=== PATIENT | male | born 1975 | race Caucasian/White ===

== ENCOUNTER 2020-01-24 11:16 | Emergency (ER) | payer OTHER, SELFPAY ==
--- NOTE | ~2020-01-24 | XR_ITS ---
XR chest 2V DATE: 01/24/2020 11:50 INDICATION: Cough TECHNIQUE: 2 views COMPARISON: None FINDINGS: Normal heart size. No hilar or mediastinal enlargement. No pulmonary infiltrate or consolidation, pleural effusion or pulmonary vascular congestion or pneumo thorax is detected. IMPRESSION: No active cardiopulmonary disease Reviewed, dictated and finalized at location B.
[2020-01-24 11:35] VITALS: BP 141/85; PULSE 91; RESP 20; TEMP 37.4; O2SAT 95
--- NOTE | 2020-01-24 11:53 | ED.GENADULT ---
HPI - General Adult General Chief complaint: Upper Respiratory Infection Stated complaint: cough Time Seen by Provider: 01/24/20 11:53 Source: patient and RN notes reviewed Mode of arrival: ambulatory Limitations: no limitations History of Present Illness HPI narrative: 45-year-old male presents with complains of exposure to COVID-19 (positive 10-year-old family member), dry cough, fever, fatigue, and body aches for the past 5-6 days. Symptoms has increased over the last 24 hours with cough, worse at night. Albuerol Inhaler, DayQuil, and NyQuil without relief. Constant dry cough. No rhinorrhea. Nasal congestion. Denies sore throat. No high fevers, drooling, neck or throat swelling. No chest pain, wheezing, or shortness of breath. No exacerbation factors. Denies nausea, vomiting, and abdominal pain. Tolerating liquids well. The patient reports he have not been diagnosed with COVID-19. The patient reports he is waiting for the results of a COVID-19 lab test. Tested on 01/22/20 in [facility] testing site, name unknown per patient. The patient reports he do not have chills or weakness. The patient reports he do not have shortness of breath. Denies chest pain. The patient reports he do not have any rhinorrhea, loss of taste, sore throat, and diarrhea. Denies recent traveling. Denies concerns for COVID-19 or exposures been home with limited outdoor exposure except for essential household needs, work, and return home. At this time, patient is not suspected of having COVID-19. Some parts of this dictation were generated by voice recognition software and may contain typographical and/or grammatical inaccuracies. Related Data Home Medications Medication Instructions Recorded Confirmed abiraterone 1,000 mg PO DAILY 01/24/20 01/24/20 albuterol sulfate 1 inh INHALATION QID PRN 01/24/20 01/24/20 metformin 500 mg PO BID 01/24/20 01/24/20 prednisone 5 mg PO BID 01/24/20 01/24/20 tamsulosin 0.4 mg PO DAILY 01/24/20 01/24/20 Allergies Allergy/AdvReac Type Severity Reaction Status Date / Time No Known Allergies Allergy Verified 01/24/20 11:35 Review of Systems Review of Systems: Narrative: CONSTITUTIONAL: Complains of intermittent fever, fatigue. Denies chills, sweats. EYES: Denies visual changes, redness, discharge. ENT: Denies rhinorrhea, sore throat, otalgia. Complains of congestion. CARDIOVASCULAR: Denies chest pain, palpitations, edema. RESPIRATORY: Denies dyspnea, wheezing. Complains of dry cough. GASTROINTESTINAL: Denies abdominal pain, nausea, vomiting, diarrhea. GENITOURINARY: Denies dysuria, hematuria, abnormal discharge. SKIN: Denies rash or itching. MUSCULOSKELETAL: Denies acute back pain, joint pain, or myalgia. NEUROLOGIC: Denies numbness or focal weakness. PSYCHIATRIC: Denies anxiety or depression. All systems reviewed & are unremarkable except as noted in HPI and below PMFSH Past Medical History Medical History (Updated 01/24/20 @ 15:58 by JESICA Landrum) Diabetes Hypercholesteremia Hypertension Morbid obesity Prostate cancer Patient says he has stage IV and is receiving hormone therapy Umbilical hernia Surgical History Surgical History (Updated 01/24/20 @ 12:20 by JESICA Landrum) History of ankle surgery Related to staph infection History of tonsillectomy Family History Family History (Updated 01/24/20 @ 12:21 by JESICA Landrum) Father Cancer Mother Heart disease Social History Social History (Updated 01/24/20 @ 12:22 by JESICA Landrum) Smoking status: Never smoker Tobacco type: cigarettes Second hand tobacco smoke exposure: No Alcohol intake: current Substance use: never Living arrangements: with family Occupation/Education: occupation Gender identity (if verbalized by the patient): Male Comments At time of signature, agree with nurse past medical, surgical, social, and family history. There is
== END 2020-01-24 12:23 | disposition home or self-care (01) ==
PROVIDERS: Emergency Provider Nurse Practitioner Family; PCP Internal Medicine
DX: B34.9 Viral infection, unspecified (principal); Z20.828 Contact with and (suspected) exposure to other viral communicable diseases; E11.9 Type 2 diabetes mellitus without complications; E78.00 Pure hypercholesterolemia, unspecified; I10 Essential (primary) hypertension; E66.01 Morbid (severe) obesity due to excess calories; Z68.42 Body mass index [BMI] 45.0-49.9, adult; C61 Malignant neoplasm of prostate
CPT/HCPCS: 71046; 99213; G0463

== ENCOUNTER 2020-01-27 05:54 | Inpatient (IN) | payer OTHER, SELFPAY ==
[2020-01-27] VITALS (17 sets, daily range): BP systolic 124–143; BP diastolic 70–88; PULSE 82–107; RESP 12–28; TEMP 36.3–39; O2SAT 93–97; BMI 51.2
--- NOTE | ~2020-01-27 | XR_ITS ---
EXAMINATION: XR chest 1V portable EXAM DATE: 01/27/2020 07:00 INDICATION: COVID 19 positive. Cough. TECHNIQUE: Portable AP frontal chest x-ray was obtained. Comparison is made to prior examination from 01/24/2020. FINDINGS: Interval development of moderate amount of bilateral mid and lower lung zone airspace disea se, most likely acute lung injury from SARS-CoV-2 given the history provided. No pneumothorax or pleural effusion. Cardiomediastinal silhouette is normal. There are no osseous abn ormalities identified. IMPRESSION: Development of moderate amount of acute airspace disease. Reviewed, dictated and finalized at location B.
--- NOTE | 2020-01-27 06:15 | ECG_ITS ---
Measurements Intervals [place] Rate: 93 P: 1 WI: 148 QRS: 32 QRSD: 86 T: 26 QT: 336 QTc: 419 Interpretive Statements SINUS RHYTHM NORMAL ECG Electronically Signed On 01-27-2020 6:58:29 CDT by Anderson Truong D.O.
--- NOTE | 2020-01-27 06:17 | ED.SOB ---
HPI - SOB/Dyspnea General Chief Complaint: Shortness of Breath/Dyspnea Stated Complaint: sob Time Seen by Provider: 01/27/20 05:58 Source: patient Mode of arrival: EMS Limitations: no limitations History of Present Illness HPI Narrative: This patient is a 45 year old male with history of DM and prostate CA who presents for evaluation of shortness of breath and COVID +. He developed symptoms of COVID 10 days ago. He tested positive on Monday. He reports he has been having cough, intermittent sore throat, fever and chills. He was evaluated at Urgent care for worsening cough . He was started on tessalon perles , prednisone 60 mg and an albuterol inhaler. He states last night his cough and sob have worsened. He also reports having a fever of 104 F at home. MD elicited complaint: shortness of breath Related Data Home Medications Medication Instructions Recorded Confirmed abiraterone 1,000 mg PO DAILY 01/24/20 01/24/20 albuterol sulfate 1 inh INHALATION QID PRN 01/24/20 01/24/20 metformin 500 mg PO BID 01/24/20 01/24/20 prednisone 5 mg PO BID 01/24/20 01/24/20 tamsulosin 0.4 mg PO DAILY 01/24/20 01/24/20 atorvastatin 01/27/20 Allergies Allergy/AdvReac Type Severity Reaction Status Date / Time No Known Allergies Allergy Verified 01/27/20 06:01 Review of Systems Review of Systems: All systems reviewed & are unremarkable except as noted in HPI and below Constitutional: Constitutional: Reports chills, Reports fatigue and Reports fever(s) ENT: Reports sore throat Respiratory: Respiratory: Reports cough, Reports dyspnea and Reports wheezing Gastrointestinal: Gastrointestinal: Reports diarrhea and Reports vomiting PMF Past Medical History Medical History (Updated 01/27/20 @ 07:28 by Liliane Allison MD) Diabetes Hypercholesteremia Hypertension Morbid obesity Prostate cancer Patient says he has stage IV and is receiving hormone therapy Umbilical hernia Surgical History Surgical History (Updated 01/24/20 @ 12:20 by JESICA Landrum) History of ankle surgery Related to staph infection History of tonsillectomy Family History Family History (Updated 01/24/20 @ 12:21 by JESICA Landrum) Father Cancer Mother Heart disease Social History Social History (Updated 01/24/20 @ 12:22 by JESICA Landrum) Smoking status: Never smoker Tobacco type: cigarettes Second hand tobacco smoke exposure: No Alcohol intake: current Substance use: never Gender identity (if verbalized by the patient): Male Exam Const: General: no acute distress and alert Orientation/consciousness: patient oriented x3 HENMT: Head: atraumatic Eyes: EOM: EOMs intact bilaterally Chest: Chest palpation & inspection: normal inspection of the chest Resp: Effort & Inspection: normal respiratory effort and no retractions Auscultation: clear to auscultation bilaterally Cardio: Rate: regular rate Rhythm: regular rhythm Heart sounds: no murmurs GI: GI Palp: Yes Soft to palpation, No Tenderness to palpation present (GI), No Guarding due to palpation present (GI) and Yes Hernia present (umbilical) Skin: General skin exam: normal color Rashes: no rashes Neuro: General: patient oriented x3 and moves all extremities Course Consultations Consultation #1: I Discussed case with Dr. Bernardo who accepts patient for admission with covid pneumonia. Date: 01/27/20 Time: 07:27 Vital Signs Vital signs: Vital Signs Temperature 100.1 F H 01/27/20 05:49 Pulse Rate 92 01/27/20 05:49 Respiratory Rate 28 H 01/27/20 05:49 Blood Pressure 126/70 01/27/20 05:49 Pulse Oximetry 94 01/27/20 05:49 Temperature 100.1 F H 01/27/20 05:49 Pulse Rate 92 01/27/20 06:43 Respiratory Rate 22 H 01/27/20 06:43 Blood Pressure 124/71 01/27/20 06:43 Pulse Oximetry 93 01/27/20 06:43 MDM - SOB/Dyspnea Lab Data Attestation: I reviewed the patient's lab results.
--- NOTE | 2020-01-27 06:20 | PC.NURSE ---
Patient attempted to provide a urine specimen, unsuccessful. Patient states he will attempt again shortly.
[2020-01-27 06:38] LABS: Basophils Percent Auto 0.1 % (0.2-1.2); Hematocrit 31.4 % (42.0-52.0); Hemoglobin 10.3 g/dL (14.0-18.0); Immature Granulocyte Absolute 0.08 K/mm3 (0.00-0.031); Immature Granulocyte Percent A 0.9 % (0-0.5); Lymphocytes Absolute Auto 1.43 K/mm3 (0.9-3.2); Lymphocytes Percent Auto 16.7 % (18.3-44.2); Mean Corpuscular HGB Conc 32.8 g/dl (32-36); Mean Corpuscular Hemoglobin 30.1 pg (26-34); Mean Corpuscular Volume 91.8 fl (80-100); Mean Platelet Volume 9.9 fl (7.4-10.4); Monocytes Absolute Auto 0.4 K/mm3 (0.1-0.6); Monocytes Percent Auto 4.1 % (2.6-8.5); Neutrophils Absolute Auto 6.7 K/mm3 (1.3-6.7); Neutrophils Percent Auto 78.2 % (45.5-73.1); Platelet Count Result 222 k/mm3 (150-375); Red Blood Count 3.42 M/mm3 (4.6-6.20); Red Cell Distribution Width 14.1 % (11.5-14.5); White Blood Count 8.6 K/mm3 (4.5-10.0)
[2020-01-27 06:46] LABS: Prothrombin Time 12.5 Seconds (11.1-14.7)
[2020-01-27 06:47] LABS: Partial Thromboplastin Time 30.6 SECONDS (22.3-36.8)
[2020-01-27 06:48] LABS: Lactic Acid Reflex 1.8 mmol/L (0.7-2.1)
--- NOTE | 2020-01-27 06:49 | PC.NURSE ---
Xray here to xray patient.
[2020-01-27 06:51] LABS: Alanine Aminotransferase 28 U/L (4-50); Albumin Level 3.7 g/dL (3.5-5.1); Alkaline Phosphatase 58 U/L (38-126); Anion Gap 10 mmol/L (8-16); Aspartate Amino Transferase 31 U/L (17-59); Bilirubin,Total 0.8 mg/dL (0.2-1.3); Blood Urea Nitrogen 16 mg/dL (9-20); CRP 6.2 mg/dL (<1.0); Calcium 8.7 mg/dL (8.4-10.2); Carbon Dioxide 24 mmol/L (22-30); Chloride 105 mmol/L (98-107); Estimated CRCL calculation 141 ml/min; Estimated Glomerular Filt Rate > 60; Glucose 101 mg/dL (75-110); Lactate Dehydrogenase 706 U/L (313-618); Potassium 3.4 mmol/L (3.4-5.0); Sodium 139 mmol/L (137-145)
--- NOTE | 2020-01-27 07:08 | PC.NURSE ---
Report given to EDNA Mcdonough to assume care of patient.
[2020-01-27 07:32] LABS: Add Urine Microscopic? YES; Appearance Urine Clear (Clear); Bacteria Urine Trace /hpf; Bilirubin Urine Negative (Negative); Blood Urine Negative (Negative); Color Urine Yellow (Yellow); Glucose Urine UA Negative (Negative); Ketones Urine Negative (Negative); Leukocyte Esterase Ur Negative LEU/UL (Negative); Mucus Urine Rare /lpf; Nitrate Urine Negative (Negative); Protein Urine 1+ mg/dL (Negative); RBC Urine 0-2 /hpf (0-2); Specific Grav Ur 1.025 (1.001-1.035); Urobilinogen Urine Negative mg/dL (<2.0); WBC Urine 0-3 /hpf
--- NOTE | 2020-01-27 10:13 | PC.NURSE ---
This patient, Navin Scott, was admitted to 3 [facility] Surg Room 332-01. Patient/family oriented to hospital policies and general routines including ID bracelet, bed and alarms, visiting hours, pain management, procedures, bathroom and other care routines, personal items, smoking policy, room service/diet, and visiting hours. Valuables list has been completed. Information on how to activate the Rapid Response Team has been discussed. Patient/Family are encouraged to report perceived risks to care and to ask questions if they do not understand what they are told or what they should do.
--- NOTE | 2020-01-27 15:13 | PM.IMHP ---
H&P: HPI History of Present Illness Date/Time: 01/27/20 15:13 Chief complaint: covid pneumonia Narrative: Chief Complaint: worsening SOB and cough Navin Scott is a 45 year old male with history of diabetes, hypercholesteremia, hypertension (no longer takes medication), and prostate cancer (on hormonal therapy and prednisone) who presented to the ED via EMS from home on 01/26 with complaints of worsening cough and shortness of breath for the past several days. Patient states he was recently tested positive for COVID this past week but has been experiencing symptoms for roughly 10 days now. He has had several family members test positive in his household as well. He notes that he went to an on 01/23 with similar complaints and was sent home on prednisone burst, flonase, albuterol, benzonatate, and zyrtec. 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 He also endorses progressive weakness and non-bloody, non-melenic diarrhea. His appetite has been fair, but diminished. He tells me that he feels somewhat better today, but still weak and has a very dry cough. Otherwise no other complaints. Denies headaches, dizziness, lightheadedness, cp/palpitations, n/v, abd pain, dysuria, hematuria, cloudy urine, calf pain/swelling. While in the ED, CXR found development of moderate bilateral mid and lower lung zone airspace disease compared to CXR on 01/23. Temp was as high as 102.2 this morning, but otherwise VSS. His oxygen saturations have been adequate on RA, satting 94 and above. Review of Systems Review of Systems: All systems reviewed & are unremarkable except as noted in HPI and below PMFSH Past Medical History Medical History Diabetes Hypercholesteremia Hypertension Morbid obesity Prostate cancer Patient says he has stage IV and is receiving hormone therapy Umbilical hernia Surgical History Surgical History History of ankle surgery Related to staph infection History of tonsillectomy Family History Family History (Updated 01/27/20 @ 15:44 by Tre Shelley PA-C) Father Cancer Colon and Prostate Mother Heart disease Social History Social History (Updated 01/27/20 @ 15:47 by Tre Shelley PA-C) Social History: Patient lives at home with his fianceFarrah, whom he designates as his surrogate medical decision maker. He also has a 10 yo child and 60 yo family member at home. His PCP is Dr. Mckoy and his Oncologist is Dr. Harley from [facility]. He wishes to be listed as a Full Code Smoking status: Never smoker Second hand tobacco smoke exposure: No Alcohol intake: current Drinks per week: 1 Substance use: never Gender identity (if verbalized by the patient): Male Spiritual care concerns: No Meds Home Medications and Allergies Home Medications Medication Instructions Recorded Confirmed Type abiraterone 1,000 mg PO DAILY 01/24/20 01/27/20 History albuterol sulfate 1 inh INHALATION QID PRN 01/24/20 01/27/20 History benzonatate 100 mg PO TID #60 cap 01/24/20 01/27/20 Rx cetirizine [Zyrtec] 10 mg PO DAILY 60 Days #60 tablet 01/24/20 01/27/20 Rx fluticasone propionate [Allergy 1 spray NASAL BID #16 ml 01/24/20 01/27/20 Rx Relief (fluticasone)] metformin 500 mg PO BID 01/24/20 01/27/20 History prednisone 5 mg PO BID 01/24/20 01/27/20 History prednisone 60 mg PO DAILY 5 Days #15 tablet 01/24/20 01/27/20 Rx tamsulosin 0.4 mg PO DAILY 01/24/20 01/27/20 History atorvastatin 60 mg PO DAILY 01/27/20 01/27/20 History calcium carbonate-vitamin D3 1 cap PO DAILY 01/27/20 01/27/20 History [Calcium 600 + D(3)] Allergies Allergy/AdvReac Type Severity Reaction Status Date / Time No Known Allergies Allergy Verified
[2020-01-27] MEDS: predniSONE 5 MG TABLET PO (18:07)
[2020-01-27] MEDS: metFORMIN HCL 500 MG TABLET PO (18:08)
[2020-01-27] MEDS: predniSONE 20 MG TABLET 60 MG PO (18:08)
[2020-01-27] MEDS: BENZONATATE 100 MG CAPSULE PO (18:08)
[2020-01-27 18:16] LABS: Lactate Dehydrogenase 822 U/L (313-618)
[2020-01-27 18:33] LABS: CRP 12.8 mg/dL (<1.0)
[2020-01-27 20:33] LABS: Glucose Point of Care 143 (65-105)
[2020-01-27 20:34] LABS: Glucose Point of Care 96 (65-105)
[2020-01-27 20:34] LABS: Glucose Point of Care 91 (65-105)
[2020-01-27] MEDS: ENOXAPARIN 40 MG/0.4 ML SYRINGE SUB-Q (21:56)
[2020-01-27] MEDS: guaiFENesin 12 HR 600 MG TABCR 1200 MG PO (21:56)
[2020-01-27] MEDS: ACETAMINOPHEN 325 MG TABLET 650 MG PO (21:56)
[2020-01-28] VITALS: BP 128/88; PULSE 86; RESP 20; TEMP 36.8; O2SAT 100
[2020-01-28 04:00] VITALS: BP 123/68; PULSE 88; RESP 20; TEMP 36.7; O2SAT 100
[2020-01-28] MEDS: ALBUTEROL SULFATE (*SP) AEROSOL 1 PUFF 6 PUFF INHALATION (06:10)
[2020-01-28 06:20] LABS: Basophils Percent Auto 0.1 % (0.2-1.2); Hematocrit 35.4 % (42.0-52.0); Hemoglobin 11.4 g/dL (14.0-18.0); Immature Granulocyte Absolute 0.11 K/mm3 (0.00-0.031); Immature Granulocyte Percent A 1.4 % (0-0.5); Lymphocytes Absolute Auto 1.06 K/mm3 (0.9-3.2); Lymphocytes Percent Auto 13.8 % (18.3-44.2); Mean Corpuscular HGB Conc 32.2 g/dl (32-36); Mean Corpuscular Hemoglobin 30.2 pg (26-34); Mean Corpuscular Volume 93.7 fl (80-100); Mean Platelet Volume 9.6 fl (7.4-10.4); Monocytes Absolute Auto 0.2 K/mm3 (0.1-0.6); Monocytes Percent Auto 3.1 % (2.6-8.5); Neutrophils Absolute Auto 6.2 K/mm3 (1.3-6.7); Neutrophils Percent Auto 81.6 % (45.5-73.1); Platelet Count Result 248 k/mm3 (150-375); Red Blood Count 3.78 M/mm3 (4.6-6.20); Red Cell Distribution Width 14.3 % (11.5-14.5); White Blood Count 7.7 K/mm3 (4.5-10.0)
[2020-01-28 06:32] LABS: Hemoglobin A1C 5.5 % (<5.7)
[2020-01-28 07:29] LABS: Alanine Aminotransferase 34 U/L (4-50); Albumin Level 3.9 g/dL (3.5-5.1); Alkaline Phosphatase 63 U/L (38-126); Anion Gap 8 mmol/L (8-16); Aspartate Amino Transferase 38 U/L (17-59); Bilirubin,Total 1.1 mg/dL (0.2-1.3); Blood Urea Nitrogen 16 mg/dL (9-20); CRP 17.8 mg/dL (<1.0); Carbon Dioxide 29 mmol/L (22-30); Chloride 102 mmol/L (98-107); Estimated CRCL calculation 141 ml/min; Estimated Glomerular Filt Rate > 60; Glucose 160 mg/dL (75-110); Lactate Dehydrogenase 835 U/L (313-618); Magnesium 1.7 mg/dL (1.6-2.3); Potassium 4.3 mmol/L (3.4-5.0); Sodium 139 mmol/L (137-145)
[2020-01-28 08:00] VITALS: BP 126/78; PULSE 72; PULSE 88; RESP 18; RESP 20; TEMP 36.2; O2SAT 100; O2SAT 92
[2020-01-28 08:26] LABS: Glucose Point of Care 111 (65-105)
[2020-01-28] MEDS: ATORVASTATIN 20 MG TABLET 60 MG PO (09:46)
[2020-01-28] MEDS: BENZONATATE 100 MG CAPSULE PO ×2 (09:46→12:31)
[2020-01-28] MEDS: ENOXAPARIN 40 MG/0.4 ML SYRINGE SUB-Q (09:47)
[2020-01-28] MEDS: TAMSULOSIN HCL 0.4 MG CAPSULE PO (09:52)
[2020-01-28] MEDS: predniSONE 5 MG TABLET PO (09:53)
[2020-01-28] MEDS: metFORMIN HCL 500 MG TABLET PO (09:53)
[2020-01-28] MEDS: guaiFENesin 12 HR 600 MG TABCR 1200 MG PO (09:53)
[2020-01-28] MEDS: predniSONE 20 MG TABLET 60 MG PO (09:54)
[2020-01-28 12:00] VITALS: BP 152/87; PULSE 80; RESP 18; TEMP 37.2; O2SAT 93
[2020-01-28 12:25] LABS: Glucose Point of Care 131 (65-105)
--- NOTE | 2020-01-28 12:55 | PM.DS ---
DS: Admitting Diagnosis Admitting Diagnosis Admitting Diagnosis: covid pneumonia DS: Discharge Diagnosis Discharge Diagnosis (1) Pneumonia due to COVID-19 virus: Code(s): U07.1 - COVID-19; J12.89 - Other viral pneumonia Status: Acute Assessment and Plan: CXR suggestive of COVID PNA. Patient tested positive last week with multiple positive family members at home. Tmax 102.2. Afebrile today. Patient satting mid-upper 90s on RA overnight and today, not requiring oxygen. Inflammatory markers slightly worse overnight, however, he has significantly improved, clinically overnight. He states he feels comfortable going home today with further supportive care at home. Will continue supportive care with Tylenol, mucinex, his recently prescribed albuterol and benzonatate D/c home today F/u with PCP Given patient is not requiring oxygen at this moment, will hold on remdesivir Patient was started on prednisone burst of 60 mg x 5 days on 01/23 at ; will continue this Monitor closely (2) Diabetes: Code(s): E11.9 - Type 2 diabetes mellitus without complications Status: Acute Assessment and Plan: Bgl 100s. A1c 5.5 Continue Metformin Accuchecks ACHS, hypoglycemia protocol, correctional insulin, diabetic diet during stay (3) Hypercholesteremia: Code(s): E78.00 - Pure hypercholesterolemia, unspecified Status: Acute Assessment and Plan: LFTs WNL continue home statin (4) Hypertension: Code(s): I10 - Essential (primary) hypertension Status: Acute Assessment and Plan: BP between 120s-150s sys today. He states he no longer takes blood pressure medication F/u with PCP (5) Prostate cancer: Code(s): C61 - Malignant neoplasm of prostate Status: Acute Assessment and Plan: Patient takes prednisone 5 mg BID and abiraterone. Discussed with MACHINE FILLER at Dr. Harley' office who stated patient can either hold, or resume abiraterone depending on how he is feeling. If holding, he can resume once feeling better. Further care per Dr. Harley DS: Summary Hospital Course Reason for hospitalization: COVID pneumonia Hospital Course: Patient is a 45 yo M with history of diabetes, hypercholesteremia, hypertension (no longer takes medication), and prostate cancer (on hormonal therapy and prednisone) who presented to the ED via EMS from home on 01/26 with complaints of worsening cough and shortness of breath for the previous several days. Patient was tested the week prior for COVID which was positive. Patient was found to have persistent fevers while in the ED with a tmax of 102.2. CXR showed findings suggestive of PNA, likely COVID given history. He was found to have adequate oxygen saturations while on RA in the ED. Patient admitted under this setting. Please see H&P for further details. Presenting VS: Temp Pulse Resp BP Pulse Ox 100.1 F H 92 28 H 126/70 94 RA 01/27/20 05:49 01/27/20 05:49 01/27/20 05:49 01/27/20 05:49 01/27/20 05:49 Presenting Pertinent labs: LDH 706, CRP 6.2. CBC, chemistry, UA otherwise unremarkable Micro: BCx shows NGTD x 2 after 4 days Imaging: Chest X-Ray 01/27/20 08:14 IMPRESSION: Development of moderate amount of acute airspace disease. ECG: Interpretive Statements SINUS RHYTHM NORMAL ECG Patient was admitted to the hospitalist service for further evaluation and observation given his history of prostate cancer. PAtient was very symptomatic on day of admission. Patient was treated with supportive care and given the rest of his prednisone 60 mg prescription that was prescribed several days prior from the . He did not meet criteria for remdesivir therapy as he was not requiring any oxygen. On the following day, although some of his inflammatory markers incr
== END 2020-01-28 16:10 | disposition home or self-care (01) | DRG 177 ==
LOC: ANHED 07:28 → ANH3MEDSUR 07:49
PROVIDERS: Admitting Provider Family Medicine; Emergency Provider General Practice; PCP Internal Medicine; Visit Provider Physician Assistant
DX: U07.1 COVID-19 (principal); J12.89 Other viral pneumonia; Z68.43 Body mass index [BMI] 50.0-59.9, adult; E11.9 Type 2 diabetes mellitus without complications; E78.00 Pure hypercholesterolemia, unspecified; I10 Essential (primary) hypertension; C61 Malignant neoplasm of prostate; E66.01 Morbid (severe) obesity due to excess calories; K42.9 Umbilical hernia without obstruction or gangrene
CPT/HCPCS: 36415; 71045; 80053; 81001; 82728; 83036; 83605; 83615; 83735; 85025; 85610; 85730; 86140; 87040; 93005; 94640; 99285; A9270; G0378; J0131; J1650; J7512

== ENCOUNTER 2021-08-24 12:32 | Emergency (ER) | payer OTHER, SELFPAY ==
--- NOTE | ~2021-08-24 | XR_ITS ---
EXAMINATION: XR abdomen/kub 1V INDICATION: Urolithiasis TECHNIQUE: Supine views of the abdomen were obtained on 2 radiographs. COMPARISON: CT from today FINDINGS: Contrast from earlier CT partially opacifies the urinary tract. There is a persistent right nephrogram. The right ureterovesicular junction stone seen on CT is obscured by contrast in the urin italo bladder. No additional urolithiasis is identified. There is moderate osteoarthritis of the hips. IMPRESSION: 1. Right UVJ stone obscured by contrast in the urinary bladder. Reviewed, dictated and finalized at location A.
--- NOTE | ~2021-08-24 | CT_ITS ---
EXAMINATION: CT abdomen pelvis w con DATE: 08/24/2021 14:24 INDICATION: r/o appendicitis TECHNIQUE: Computed tomography (CT) of the abdomen and pelvis was performed with 100 mL Omnipaque-350 intravenous contrast. Automated exposure control and iterative reconstruction technique were employe d. The dose-length product was 1651.08 mGy-cm. COMPARISON: None FINDINGS: Lower thorax: Unremarkable. Liver: Normal. Biliary/Gallbladder: Gallbladder is normal. No bile duct dilation. Spleen: Normal. Pancreas: No mass or duct dilation. Adrenals:No mass. Kidneys: Delayed right nephrogram. Moderate perinephric stranding/fluid, caliectasis, pelviectasis, a nd ureterectasis. No renal calcifications or mass. GI tract: No small or large bowel dilation. Normal appendix. Mesentery/Peritoneum: No ascites, mass, or free air. Retroperitoneum: No mass. Pelvis: Subtle 2 x 5 mm density in the region of the right UVJ. Mild bladder wall thickening. Bones/Soft Tissues: Large umbilical hernia containing fat. Left inguinal hernia. No acute osseous fin ding. Additional Findings: None. IMPRESSION: Right renal and collecting system findings may represent a minimally or partially calcified stone obs tructing the right UVJ, a recently passed stone, and/or ascending infection. No CT evidence of append icitis. Reviewed, dictated and finalized at location K. IMPRESSION: Right renal and collecting system findings may represent a minimally or partial ly calcified stone obstructing the right UVJ, a recently passed stone, and/or a scending infection. No CT evidence of appendicitis.
[2021-08-24 12:38] VITALS: BP 149/74; PULSE 71; RESP 16; TEMP 36.4; O2SAT 99
--- NOTE | 2021-08-24 13:10 | ED.ABDPAIN ---
HPI - Abdominal Pain General Chief Complaint: Abdominal Pain Stated Complaint: right side pain and diarrhea Time Seen by Provider: 08/24/21 12:56 History of Present Illness HPI narrative: 46-year-old male presents to the emergency room with a cute onset of abdominal pain. Patient states that the sharp pain that radiates into his back. Denies any dysuria, hematuria. Denies fever. Patient states he had a similar experience 4 weeks ago. Patient states the pain occurred 2 days after starting Ozempic. Patient states he takes Ozempic every Monday. Patient is also complaining of nausea, vomiting, and diarrhea. Patient reports he is currently receiving treatment for prostate cancer Related Data Allergies Allergy/AdvReac Type Severity Reaction Status Date / Time No Known Allergies Allergy Verified 08/24/21 13:23 Review of Systems Review of Systems: CONSTITUTIONAL: Denies fever, chills, or sweats. EYES: Denies visual changes, redness, or discharge. ENT: Denies rhinorrhea, congestion, sore throat, or otalgia. CARDIOVASCULAR: Denies chest pain, palpitations, or edema. RESPIRATORY: Denies cough or dyspnea. GASTROINTESTINAL: Reports abdominal pain, nausea, vomiting, or diarrhea. GENITOURINARY: Denies dysuria or hematuria. SKIN: Denies rash or itching. MUSCULOSKELETAL: Denies back pain, joint pain, or myalgia. NEUROLOGIC: Denies headache, numbness, dizziness, or weakness. PSYCHIATRIC: Denies anxiety or depression. Exam Narrative: GENERAL: Well-appearing, well-nourished, and in no acute distress. HEAD: Normocephalic, atraumatic. EYES: PERRLA and EOMI. CHEST: Clear to auscultation. No respiratory distress. No wheezes rales or rhonchi HEART: Regular rate and rhythm. No murmur heard. Normal peripheral pulses. ABDOMEN: Soft, obese, right lower quadrant tenderness, reducible umbilical hernia, nondistended, normal active bowel sounds. Negative heel strike. Negative psoas and obturator signs. EXTREMITIES: Normal range of motion. No edema. SKIN: Warm, dry, no rash. NEURO: No focal deficits. Alert and oriented x3. PSYCH: Normal mood and affect. Course Vital Signs Vital signs: Vital Signs Temperature 36.4 C L 08/24/21 12:38 Pulse Rate 71 08/24/21 12:38 Respiratory Rate 16 08/24/21 12:38 Blood Pressure 149/74 H 08/24/21 12:38 Pulse Oximetry 99 08/24/21 12:38 Temperature 36.4 C L 08/24/21 12:38 Pulse Rate 73 08/24/21 14:34 Respiratory Rate 18 08/24/21 14:34 Blood Pressure 163/91 H 08/24/21 14:34 Pulse Oximetry 98 08/24/21 14:34 MDM - Abdominal Pain MDM Narrative Medical decision making narrative: 46-year-old male presents to the emergency room for evaluation of right lower abdominal pain. Patient states that the pain started today and radiated into his back. On further evaluation patient stated that he noticed a decreased stream since yesterday. Had similar symptoms approximately 3 to 4 weeks ago that resolved without intervention. CBC shows anemia likely due to chronic illness. CMP is unremarkable. CT scan of the abdomen shows partially obstructed kidney stone in the right UVJ. Urine shows hematuria consistent with kidney stone. Patient was given a liter of fluid, antiemetics, and Toradol. Patient states after he voided the pain resolved. Medical Records Attestation: I reviewed the patient's medical records. Lab Data Attestation: I reviewed the patient's lab results. Result diagrams: 08/24/21 13:21 08/24/21 13:21 Labs: Lab Results 08/24/21 08/24/21 08/24/21 Range/Units 13:21 13:21 14:32 WBC 10.7 H (4.5-10.0) K/mm3 RBC 3.95 L (4.6-6.20) M/mm3 Hgb 12.0 L (14.0-18.0) g/dL Hct 37.3 L (42.0-52.0) % MCV 94.4 (80-100) fl MCH 30.4 (26-34) pg MCHC 32.2 (32-36) g/dl RDW 12.9 (11.5-14.5) % Plt Count 210 (150-375) k/mm3 MPV 9.7 (7.4-10.4) fl Immature Gran % (Auto) 0.3 (0-0.5) % Neut % (Auto) 79.9 H (45.5-73.1)
[2021-08-24 13:32] LABS: Basophils Percent Auto 0.4 % (0.2-1.2); Eosinophils Absolute Auto 0.1 K/mm3 (0-0.3); Eosinophils Percent Auto 1.3 % (0-4.4); Hematocrit 37.3 % (42.0-52.0); Immature Granulocyte Absolute 0.03 K/mm3 (0.00-0.031); Immature Granulocyte Percent A 0.3 % (0-0.5); Lymphocytes Absolute Auto 1.31 K/mm3 (0.9-3.2); Lymphocytes Percent Auto 12.2 % (18.3-44.2); Mean Corpuscular HGB Conc 32.2 g/dl (32-36); Mean Corpuscular Hemoglobin 30.4 pg (26-34); Mean Corpuscular Volume 94.4 fl (80-100); Mean Platelet Volume 9.7 fl (7.4-10.4); Monocytes Absolute Auto 0.6 K/mm3 (0.1-0.6); Monocytes Percent Auto 5.9 % (2.6-8.5); Neutrophils Absolute Auto 8.6 K/mm3 (1.3-6.7); Neutrophils Percent Auto 79.9 % (45.5-73.1); Platelet Count Result 210 k/mm3 (150-375); Red Blood Count 3.95 M/mm3 (4.6-6.20); Red Cell Distribution Width 12.9 % (11.5-14.5); White Blood Count 10.7 K/mm3 (4.5-10.0)
[2021-08-24] MEDS: SODIUM CHLORIDE 0.9% IV 1,000 ML 999 ML IV CONT ×2 (13:37→15:47)
[2021-08-24] MEDS: DICYCLOMINE HCL INJ 20 MG/2 ML VIAL IM (13:37)
[2021-08-24] MEDS: ONDANSETRON INJ 4 MG/2 ML VIAL IV PUSH (13:37)
[2021-08-24 13:38] VITALS: BP 137/72; PULSE 74; RESP 18; O2SAT 100
[2021-08-24 13:46] LABS: Alanine Aminotransferase 35 U/L (4-50); Albumin Level 4.2 g/dL (3.5-5.1); Alkaline Phosphatase 81 U/L (38-126); Anion Gap 8 mmol/L (8-16); Aspartate Amino Transferase 38 U/L (17-59); Bilirubin,Total 1.2 mg/dL (0.2-1.3); Blood Urea Nitrogen 21 mg/dL (9-20); Calcium 9.1 mg/dL (8.4-10.2); Carbon Dioxide 27 mmol/L (22-30); Chloride 107 mmol/L (98-107); Estimated CRCL calculation 97 ml/min; Estimated Glomerular Filt Rate 59; Glucose 120 mg/dL (65-110); Lipase 177 U/L (23-300); Potassium 4.1 mmol/L (3.4-5.0); Sodium 142 mmol/L (137-145)
[2021-08-24 14:05] VITALS: BP 137/72; PULSE 85; RESP 18; O2SAT 100
[2021-08-24 14:34] VITALS: BP 163/91; PULSE 73; RESP 18; O2SAT 98
[2021-08-24 14:45] LABS: Appearance Urine Cloudy (Clear); Bilirubin Urine Negative (Negative); Blood Urine 2+ (Negative); Color Urine Yellow (Yellow); Glucose Urine UA Negative (Negative); Ketones Urine Negative (Negative); Leukocyte Esterase Ur Negative LEU/UL (Negative); Nitrate Urine Negative (Negative); Protein Urine Negative (Negative); Specific Grav Ur 1.025 (1.001-1.035); Urobilinogen Urine 0.2 mg/dL (<2.0); pH Urine 5.5 (5.0-9.0)
[2021-08-24 14:54] LABS: Bacteria Urine Trace /hpf; Mucus Urine Rare /lpf; RBC Urine >75 /hpf (0-2); Uric Acid Crystals Urine Many /hpf; WBC Urine 0-3 /hpf
[2021-08-24 14:55] LABS: Add Urine Microscopic? YES
[2021-08-24] MEDS: KETOROLAC 30 MG/ML VIAL (*BKC) IV PUSH (15:11)
--- NOTE | 2021-08-24 15:48 | PC.NURSE ---
IVF given at 999 ml / hr
== END 2021-08-24 17:11 | disposition home or self-care (01) ==
PROVIDERS: Emergency Medicine; Emergency Provider Nurse Practitioner Family; PCP Internal Medicine
DX: N20.9 Urinary calculus, unspecified (principal)
CPT/HCPCS: 36415; 74018; 74177; 80053; 81001; 83690; 85025; 96361; 96372; 96374; 96375; 99284; J0500; J1885; J2405; J7030; Q9967